=== PATIENT | female | born 1970 | race Caucasian/White ===

== ENCOUNTER 2023-01-02 13:47 | Emergency (ER) | payer BC ==
[~2023-01-02] VITALS: Ht 165.1 cm; Wt 61.7 kg
[2023-01-02 13:50] VITALS: BP_SYST 154
[2023-01-02 14:38] LABS: BASOPHILS % (AUTO) 0.6 % (0.0-2.0); EOSINOPHILS % (AUTO) 0.4 % (0.0-4.0); HEMATOCRIT 40.2 % (36-48); HEMOGLOBIN 13.4 g/dL (12.0-16.0); LYMPHOCYTES # (AUTO) 1.3 K/uL (1.0-5.5); LYMPHOCYTES % (AUTO) 24.8 % (20.5-51.5); MEAN CORPUSCULAR HEMOGLOBIN 30 pg (27-31); MEAN CORPUSCULAR HGB CONC 33 % (32-36); MEAN CORPUSCULAR VOLUME 89 fL (79.0-98.0); MONOCYTES # (AUTO) 0.3 K/uL (0.0-1.0); MONOCYTES % (AUTO) 5.2 % (1.7-9.3); NEUTROPHILS # (AUTO) 3.6 K/uL (1.8-7.7); PLATELET COUNT (AUTO) 219 K/uL (130-430); RED BLOOD CELL COUNT(AUTO) 4.53 MIL/uL (4.2-6.2); RED CELL DISTRIBUTION WIDTH 13.6 % (9.0-15.0); WHITE BLOOD COUNT (AUTO) 5.2 K/uL (4.8-10.8)
[2023-01-02] MEDS ORDERED: FAMO20TA8 PO ×2 (14:39)
[2023-01-02] MEDS ORDERED: ONDA-8 TL ×2 (14:39)
[2023-01-02] MEDS ORDERED: ANT30 PO ×2 (14:39)
[2023-01-02] MEDS ORDERED: SUCR1TAB2 PO ×2 (14:39)
[2023-01-02] MEDS ORDERED: POTASSIUM CHLORIDE 20 MEQ TAB.PRT.SR PO ONE (14:45)
[2023-01-02 14:56] LABS: ANION GAP 9 (5-15); CALCIUM 8.8 mg/dL (8.4-11.0); CHLORIDE 105 mmol/L (98-107); CREATININE 0.62 mg/dL (0.55-1.30); GFR AFRICAN AMERICAN 131 mL/min (>90); GLUCOSE 93 mg/dL (74-106); UREA NITROGEN, BLOOD 12 mg/dL (8-21)
[2023-01-02 15:06] LABS: ALANINE AMINOTRANSFERASE 18 U/L (12-78); ASPARTATE AMINOTRANSFERASE 13 U/L (10-37); TOTAL BILIRUBIN 0.4 mg/dL (0.0-1.0)
[2023-01-02] MEDS ORDERED: IBUP-1969 PO (15:47)
[2023-01-02] MEDS ORDERED: LIDO1ADH71 TD (15:47)
[2023-01-02] MEDS ORDERED: METH-634 PO (15:47)
[2023-01-02 16:02] VITALS: BP_SYST 154
== END 2023-01-02 16:02 | disposition home or self-care (01) ==
LOC: SED 13:47
DX: M47.812 Spondylosis without myelopathy or radiculopathy, cervical region (principal); R20.2 Paresthesia of skin; M25.562 Pain in left knee; Z79.899 Other long term (current) drug therapy
CPT/HCPCS: 36415; 70450-TC; 72125-TC; 76376; 80053; 84484; 85025; 93005; 93971; 99284